=== PATIENT | female | born 1935 | race Caucasian/White ===

== ENCOUNTER 2016-07-27 18:46 | Observation (INO) | payer MEDICARE, OTHER ==
[~2016-07-27] VITALS: Ht 157.5 cm; Wt 60.5 kg
[~2016-07-27 18:46] MED LIST: CHOLESTEROL MED; [UNRECOGNIZED DRUG - REMARK]
[2016-07-27] MEDS ORDERED: ACETAMINOPHEN 500 MG TAB PO STA (19:11)
[2016-07-27] MEDS ORDERED: KETOROLAC 30 MG INJ IV STA (19:23)
[2016-07-27 19:41] LABS: ADD SCAN DIFF NO
[2016-07-27 19:43] LABS: BASOPHILS % 0.2 % (0.0-2.0); HEMATOCRIT 31.2 % (37.0-47.0); HEMOGLOBIN 10.8 g/dl (12.0-16.0); LYMPHOCYTES # 1.7 10^3/ul (0.8-2.9); LYMPHOCYTES % 25.4 % (15.0-51.0); MEAN CORPUSCULAR HEMOGLOBIN 32.8 pg (29.0-33.0); MEAN CORPUSCULAR HGB CONC 34.6 g/dl (32.0-37.0); MEAN CORPUSCULAR VOLUME 94.8 fl (82.0-101.0); MEAN PLATELET VOLUME 10.6 fl (7.4-10.4); MONOCYTES % 15.6 % (0.0-11.0); NEUTROPHIL # 3.9 10^3/ul (1.6-7.5); NEUTROPHILS % 58.5 % (39.0-77.0); PLATELET COUNT 176 10^3/UL (140-415); RED BLOOD COUNT 3.29 10^6/ul (4.20-5.40); RED CELL DISTRIBUTION WIDTH 12.4 % (11.5-14.5); WHITE BLOOD COUNT 6.7 10^3/ul (4.8-10.8)
[2016-07-27 20:00] LABS: ALBUMIN 3.7 g/dl (3.3-4.9); POTASSIUM 3.3 mmol/L (3.5-5.1)
[2016-07-27 20:02] LABS: CREATININE 0.68 mg/dl (0.44-1.00)
[2016-07-27 20:03] LABS: ALBUMIN/GLOBULIN RATIO 0.9; BILIRUBIN,INDIRECT 0.8 mg/dl (0-1.1); BILIRUBIN,TOTAL 0.8 mg/dl (0.2-1.3); CALCIUM 8.6 mg/dl (8.4-10.2); TOTAL PROTEIN 7.8 g/dl (6.1-8.1)
[2016-07-27 20:06] LABS: C-REACTIVE PROTEIN 8.7 mg/dl (0.0-0.9)
--- NOTE | 2016-07-27 20:57 | ERD ---
ER Documentation Chief Complaint Date/Time DATE: 07/27/16 TIME: 20:54 Chief Complaint pain right ankle since yesterday, left knee pain x 1 day (KOSTA BARR PA-C) HPI Patient is an 81-year-old female with a past medical history of osteoarthritis here with granddaughter as rn child who presents to the ED with sudden onset of right ankle pain that started yesterday and left knee pain that started this morning. Denies any new onset trauma or triggering factor. She states that they went to [place] recently but there is no trauma or increase in activity. States that the pain has gotten worse and she is unable to bear weight or walk. She has very minimal range of motion in her ankle. She denies numbness or tingling. She denies pain in her calves. She denies leg swelling. Denies headache or dizziness. States that she had a fever today. Has not taken any medication for symptoms. Her left knee pain started this morning. She states that she has applied a lot of pressure to the left knee due to the pain in the right ankle. Denies any redness or swelling in her left knee. She is able to bend her knee. (KOSTA BARR PA-C) ROS All systems reviewed and are negative except as per history of present illness. (KOSTA BARR PA-C) Medications Home Meds Reported Medications [Osteoporesis Med] No Conflict Check, DAILY 09/10/11 [Cholesterol Med] No Conflict Check, DAILY 09/10/11 Allergies Allergies: Coded Allergies: No Known Drug Allergies (Verified Allergy, Unknown, 07/27/16) PMhx/Soc History of Surgery: No Anesthesia Reaction: No Hx Neurological Disorder: No Hx Respiratory Disorders: No Hx Cardiac Disorders: No Hx Psychiatric Problems: No Hx Miscellaneous Medical Probl: Yes (ANXIETY, NO MEDS TAKEN, osteoporosis, high cholesterol) Hx Alcohol Use: No Hx Substance Use: No Hx Tobacco Use: No (KOSTA BARR PA-C) FmHx Family History: No coronary disease, No diabetes, No other (KOSTA BARR PA-C) Physical Exam Vitals Vital Signs Date Time Temp Pulse Resp B/P Pulse Ox O2 Delivery O2 Flow Rate FiO2 07/27/16 21:45 98.2 65 16 118/62 96 07/27/16 18:48 101.0 90 20 122/59 96 (SISI MACARIO A. ) Physical Exam GENERAL: Well-developed, well-nourished female. Appears in no acute distress. HEAD: Normocephalic, atraumatic. EYES: Pupils are equally reactive bilaterally. EOMs grossly intact. No conjunctival erythema. ENT: Moist mucous membranes. No uvula deviation. No kissing tonsils. No exudates. NECK: Supple. No lymphadenopathy or thyromegaly. No meningismus. negative kernig. negative brudinski. LUNG: Clear to auscultation bilaterally. No rhonchi, wheezing, rales or coarse breath sounds. HEART: Regular rate and rhythm. No murmurs, rubs or gallops. Extremities: Equal pulses bilaterally. No peripheral clubbing, cyanosis. No unilateral leg swelling. Tenderness to the right ankle with mild swelling and mild erythema. Very minimal range of motion. Pulses intact. Negative Homans sign. NEUROLOGIC: Alert and oriented. . Normal speech. unSteady gait. SKIN: Normal color. Warm and dry. No rashes or lesions. Capillary refill < 2 seconds (KOSTA BARR PA-C) Result Diagram: 07/27/16193407/27/161934 Results 24 hrs Laboratory Tests Test 07/27/16 19:35 White Blood Count 6.710^3/ul Red Blood Count 3.2910^6/ul Hemoglobin 10.8g/dl Hematocrit 31.2% Mean Corpuscular Volume 94.8fl Mean Corpuscular Hemoglobin 32.8pg Mean Corpuscular Hemoglobin Concent 34.6g/dl Red Cell Distribution Width 12.4% Platelet Count 17956^3/UL Mean Platelet Volume 10.6fl Neutrophils % 58.5% Lymphocytes % 25.4% Monocytes % 15.6% Eosinophils % 0.0% Basophils % 0.2% Nucleated Red Blood Cells % 0.0/100WBC Neutrophils # 3.910^3/ul Lymphocytes # 1.710^3/ul Monocytes # 1.010^3/ul Eosinophils # 0.010^3/ul Basophils # 0.010^3/ul Nucleated Red Blood Cells # 0.010^3/ul Erythrocyte Sedimentation Rate 79mm/Hr Sodium Level 137mmol/L Potassium Level 3.3mmol/L Chloride Level 99mmol/L Carbon Dioxide Level 26mmol/L Anion Gap 15 Blood Urea Nitrogen 14mg/dl Creatinine 0.68mg/dl Glucose Level 134mg/dl Calcium Level 8.6mg/dl Total Bilirubin 0.8mg/dl Direct Bilirubin 0.00mg/dl Indirect Bilirubin 0.8mg/dl Aspartate Amino Transf (AST/SGOT) 27IU/L Alanine Aminotransferase (ALT/SGPT) 34IU/L Alkaline Phosphatase 118IU/L C-Reactive Protein 8.7mg/dl Total Protein 7.8g/dl Albumin 3.7g/dl Globulin 4.10g/dl Albumin/Globulin Ratio 0.90 Current Medications Medications (Trade) Dose Ordered Sig/Gisel Route PRN Reason Start Time Stop Time Status Last Admin Dose Admin Acetaminophen (Tylenol Tab) 1,000 mg ONCE STAT PO 07/27/16 19:11 07/27/16 19:24 DC 07/27/16 19:21 Ketorolac Tromethamine (Toradol) 30 mg ONCE STAT IV 07/27/16 19:23 07/27/16 19:24 DC 07/27/16 19:27 Lidocaine (Xylocaine 1% (Mdv) 20 ml) 20 ml ONCE ONCE SC 07/27/16 22:00 07/27/16 22:01 DC (SISI MACARIO DO) Procedures/MDM ER COURSE: I kept the patient and/or family informed of laboratory and diagnostic imaging results throughout the emergency room course. IMAGING STUDIES [place] [id number] Radiology Main Line: [phone] DIAGNOSTIC IMAGING REPORT Patient: SANTO SHERIDAN : 1935 Age: 81 Sex: F MR #: [id number] DOS: 07/27/161910 Ordering MD: KOSTA BARR PA-C Location: [facility] Room/Bed: PROCEDURE: XR Right Ankle. CLINICAL INDICATION: Right ankle pain. TECHNIQUE: 3 views. Frontal, lateral, and oblique. COMPARISON: None. FINDINGS: There is no fracture or dislocation. There is diffuse soft tissue swelling. Articular surfaces are intact. There is no lytic or blastic lesion. There is no radiopaque foreign body. IMPRESSION: 1. Diffuse soft tissue swelling. 2. Otherwise normal images of the right ankle. RPTAT: QQ .Dallin Sanabria MD, MD Date Time Electronically viewed and signed by .Dallin Sanabria MD, MD on 07/27/2016 21:07 .R/ CC: KOSTA BARR PA-C [place] [id number] Radiology Main Line: [phone] DIAGNOSTIC IMAGING REPORT Patient: SANTO SHERIDAN : 1935 Age: 81 Sex: F MR #: [id number] DOS: 07/27/16 1911 Ordering MD: KOSTA BARR PA-C Location: [facility] Room/Bed: PROCEDURE: Left knee radiographs. CLINICAL INDICATION: Left knee pain. TECHNIQUE: Three views. Weight bearing. Frontal, lateral, and oblique. COMPARISON: No prior studies are available for comparison. FINDINGS: There is no fracture or dislocation. There is a large joint effusion. There are degenerative changes with osteophytes arising from all 3 joint compartment margins. There is medial joint compartment narrowing, subarticular sclerosis, and deformity. There is no lytic or blastic lesion. There is no radiopaque foreign body. IMPRESSION: 1. Large joint effusion. 2. Severe degenerative change. 3. No acute abnormality. RPTAT: QQ .Dallin Sanabria MD, Date Time Electronically viewed and signed by .Dallin Sanabria MD, MD on 07/27/2016 21:08 .R/ CC: KOSTA BARR PA-C LABORATORY STUDIES Patient CBC does not show signs of infection or anemia. ESR is elevated to 79 CRP is elevated to 8.7. MEDICAL DECISION MAKING: This is a 81-year-old female who presents with right ankle pain 1 day vital signs were reviewed. Patient is afebrile. Patient is not hypoxic. I consulted with Dr. Macario regarding this patient who reviewed her imaging studies and laboratory studies. Ankle arthrocentesis was ordered. Very minimal fluid was removed from the right ankle. Patient will be admitted. Patient is stable at transfer to the ED 1 for admission. Her x-rays of by radiologist unremarkable for fracture or dislocation. Low suspicion for osteomyelitis. Patient likely has septic joint however further evaluation needs to be done. (KOSTA BARR PA-C) Arthrocentesis by me: Patient consented, sterilely draped, full prep, time out performed. Anesthesia: 1% lidocaine locally Location: Right ankle Technique: 20 gauge needle aspiration Results: 0.5 ml of serous fluid Complications: Minimal bleeding. No complications. (ISSI MACARIO DO) KOSTA BARR PA-C July 27, 2016 20:57 SISI MACARIO DO July 27, 2016 22:49
--- NOTE | 2016-07-27 21:08 | RADRPT ---
PROCEDURE: XR Right Ankle. CLINICAL INDICATION: Right ankle pain. TECHNIQUE: 3 views. Frontal, lateral, and oblique. COMPARISON: None. FINDINGS: There is no fracture or dislocation. There is diffuse soft tissue swelling. Articular surfaces are intact. There is no lytic or blastic lesion. There is no radiopaque foreign body. IMPRESSION: 1. Diffuse soft tissue swelling. 2. Otherwise normal images of the right ankle. RPTAT: QQ .Dallin Sanabria MD, MD Date Time Electronically viewed and signed by .Dallin Sanabria MD, MD on 07/27/2016 21:07 .R/
--- NOTE | 2016-07-27 21:08 | RADRPT ---
PROCEDURE: Left knee radiographs. CLINICAL INDICATION: Left knee pain. TECHNIQUE: Three views. Weight bearing. Frontal, lateral, and oblique. COMPARISON: No prior studies are available for comparison. FINDINGS: There is no fracture or dislocation. There is a large joint effusion. There are degenerative changes with osteophytes arising from all 3 joint compartment margins. There is medial joint compartment narrowing, subarticular sclerosis, and deformity. There is no lytic or blastic lesion. There is no radiopaque foreign body. IMPRESSION: 1. Large joint effusion. 2. Severe degenerative change. 3. No acute abnormality. RPTAT: QQ .Dallin Sanabria MD, MD Date Time Electronically viewed and signed by .Dallin Sanabria MD, MD on 07/27/2016 21:08 .R/
[2016-07-27 21:45] VITALS: TEMP 98.2
[2016-07-27] MEDS ORDERED: LIDOCAINE 1% (MDV) 20 ML INJ SC ONE (22:00)
[2016-07-27] MEDS ORDERED: SOD CHLORIDE 0.9% 1,000 ML IV SCH (23:39)
[2016-07-28] MEDS ORDERED: PIPER-TAZO 3.375 GM IV (PMX) 100 ML IVPB ONE
[2016-07-28 00:45] VITALS: BP 137/61; PULSE 86; RESP 18; Ht 157.5 cm; Wt 60.5 kg
[2016-07-28] MEDS ORDERED: morphine 2 MG INJ IV PRN (02:00)
[2016-07-28] MEDS ORDERED: DOCUSATE SODIUM 100 MG CAP PO PRN (02:30)
[2016-07-28] MEDS ORDERED: ACETAMINOPHEN 325 MG TAB PO PRN ×2 (02:30)
[2016-07-28] MEDS ORDERED: ONDANSETRON 4 MG INJ IV PRN ×2 (02:30)
[2016-07-28] MEDS ORDERED: VANCOMYCIN IV PER PHARMACY XX SCH (02:30)
[2016-07-28] MEDS ORDERED: NACL 0.9% 3 ML SYG IV SCH (02:30)
[2016-07-28] MEDS ORDERED: BISACODYL (EC) 5 MG TAB PO PRN (02:30)
[2016-07-28] MEDS ORDERED: POTASSIUM CHLORIDE (SR) 20 MEQ TAB PO STA (02:31)
--- NOTE | 2016-07-28 02:34 | HP ---
Date/Time of Note Date/Time of Note DATE: 07/28/16 TIME: 02:08 Assessment/Plan VTE Prophylaxis VTE Prophylaxis Intervention: LMWH Lines/Catheters Central line still needed: No Urinary Cath still in place: No Assessment/Plan Chief Complaint/Hosp Course This is a 81-year-old female getting admitted to the [facility] floor for: #1 polyarticular joint pain: Patient has right-sided erythema and warmth and swelling noted at the ankle, patient also has a left-sided knee pain and warmth noted and effusion on xray. ED workup for septic arthritis done with fluid tap of the right ankle. Patient had a fever of 101. Patient given vancomycin and Zosyn at the ED. At the current time patient's white blood cell count within normal values ESR is elevated at 87. Uric acid level ordered the patient denies history of gout. We will continue workup for infectious versus autoimmune/inflammatory etiology. Will continue [facility] pharmacy to dose. Will await joint synovial fluid analysis. Will provide pain control with morphine. RA and CCP labs ordered. Consider consulting orthopedics. #2 Cellulitis : There is erythema at the right ankle area this could be cellulitis as there was soft tissue swelling noted on the x-ray. Patient is already on vancomycin we will continue to follow. #3 hyperlipidemia: We will continue statin #4 hypokalemia: We will replete with p.o. potassium, follow in the a.m. #5osteoporosis: Continue to provide pain control. #6 DVT GI prophylaxis: Lovenox, Protonix Problems: HPI/ROS Admit Date/Time Admit Date/Time July 27, 2016 at 23:40 Hx of Present Illness chief complain: right ankle pain. Patient is an 81-year-old female with a past medical history of osteoarthritis here with granddaughter as insurance account assistant who presents to the ED with sudden onset of right ankle pain that started yesterday and left knee pain that started this morning. Denies any new onset trauma or triggering factor. She states that they went to [place] recently but there is no trauma or increase in activity. States that the pain has gotten worse and she is unable to bear weight or walk. She has very minimal range of motion in her ankle. She denies numbness or tingling. She denies pain in her calves. She denies leg swelling. Denies headache or dizziness. States that she had a fever today. Has not taken any medication for symptoms. Her left knee pain started this morning. She states that she has applied a lot of pressure to the left knee due to the pain in the right ankle. Denies any redness or swelling in her left knee. She is able to bend her knee. allergies: nkda meds: see MAR ROS Const: Negative for fever, chills, weight gain or weight loss, fatigue, or diaphoresis Eyes : No pain discharge or redness or change in visual acuity ENT: No pain, sore throat, congestion, congestion, dysphagia or discharge Respiratory: No shortness of breath, cough, sputum, wheezing, or pleuritic pain Cardiovascular: No chest pain, palpitation, PND, or edema GI : no change in appetite, abdominal pain, nausea, vomiting, diarrhea, constipation, or change in the color his stool Genitourinary: No dysuria, hematuria, flank pain , discharge or CVA tenderness Musculoskeletal: Left knee pain, right ankle pain. Skin: No rash, bruising or hives Neuro: No headache, dizziness, syncope, seizure, focal weakness Endocrine: No polyuria, polydipsia, temperature intolerance Psych: No hallucination, depression, anxiety or suicidal ideation PMH/Family/Social Past Medical History Osteoporosis, hyperlipidemia Past Surgical History Past Surgical Hx: no surgical history Family History Significant Family History: no pertinent family hx Social History Alcohol Use: none Smoking Status: Never smoker Drug Use: none Exam/Review of Systems Vital Signs Vitals Vital Signs Date Time Temp Pulse Resp B/P Pulse Ox O2 Delivery O2 Flow Rate FiO2 07/27/16 23:44 89 16 138/59 99 Room Air 07/27/16 21:45 98.2 Exam Exam General: This is a pleasant 81-year-old female in mild distress.. The patient is alert oriented -3 HEENT: Atraumatic, normocephalic. The pupils are equal, round and reactive. Extraocular motor are intact Neck: Supple with full range of motion. No rigidity or meningismus Chest: Nontender Lungs: Clear to auscultation bilaterally no crackles rales or wheezing Heart: Normal S1-S2, Regular rhythm and rate. No murmur, S3, or S4 Abdomen: Soft , nontender, nondistended , bowel sounds are present. No guarding no rebound tenderness , No masses or organomegaly. No costovertebral temporal angle mass Extremities: Right ankle swelling and warmth, mild erythema noted. Band-Aids in place status post diagnostic tap in the ED. Left knee pain, warmth, no erythema no swelling. Neurologic: Normal mental status, speech normal, cranial nerves II through XII are intact, motor and sensory are intact, no focal weakness Additional Comments xray of left knee FINDINGS: There is no fracture or dislocation. There is a large joint effusion. There are degenerative changes with osteophytes arising from all 3 joint compartment margins. There is medial joint compartment narrowing, subarticular sclerosis, and deformity. There is no lytic or blastic lesion. There is no radiopaque foreign body. IMPRESSION: 1. Large joint effusion. 2. Severe degenerative change. 3. No acute abnormality. X-ray right ankle FINDINGS: There is no fracture or dislocation. There is diffuse soft tissue swelling. Articular surfaces are intact. There is no lytic or blastic lesion. There is no radiopaque foreign body. IMPRESSION: 1. Diffuse soft tissue swelling. 2. Otherwise normal images of the right ankle. Labs Result Diagram: 07/27/16193407/27/16 193 Medications Medications Current Medications Morphine Sulfate (morphine) 1 mg Q4H PRN IV pain management; Start 07/28/16 at 02:00 Morphine Sulfate (morphine) 2 mg Q4H PRN IV pain management; Start 07/28/16 at 02:00 OSMIN BA July 28, 2016 02:31
[2016-07-28] MEDS: PANTOPRAZOLE (EC) 40 MG TAB PO SCH (05:41)
[2016-07-28] MEDS: morphine 2 MG INJ IV PRN ×2 (06:09→14:00)
[2016-07-28 08:02] VITALS: BP 93/50; RESP 18
[2016-07-28] MEDS: ENOXAPARIN 40 MG/0.4 ML SYG SC SCH (08:14)
[2016-07-28] MEDS ORDERED: VANCOMYCIN 1 GM (PMX) 250 ML IVPB SCH ×2 (09:00)
[2016-07-28 20:09] VITALS: BP 123/58; RESP 17
[2016-07-28] MEDS ORDERED: AL HYDROX/MG HYDROX/SIMETH 30 ML CUP PO PRN (21:30)
[2016-07-28] MEDS ORDERED: VANCOMYCIN 1 GM in NS 250 ML IVPB SCH (23:00)
[2016-07-29 06:30] LABS: ADD SCAN DIFF NO
[2016-07-29 06:33] LABS: BASOPHILS % 0.4 % (0.0-2.0); EOSINOPHILS % 0.2 % (0.0-7.0); HEMATOCRIT 29.4 % (37.0-47.0); HEMOGLOBIN 9.6 g/dl (12.0-16.0); LYMPHOCYTES # 1.4 10^3/ul (0.8-2.9); MEAN CORPUSCULAR HEMOGLOBIN 31.1 pg (29.0-33.0); MEAN CORPUSCULAR HGB CONC 32.7 g/dl (32.0-37.0); MEAN CORPUSCULAR VOLUME 95.1 fl (82.0-101.0); MEAN PLATELET VOLUME 10.9 fl (7.4-10.4); MONOCYTE # 0.9 10^3/ul (0.3-0.9); MONOCYTES % 16.2 % (0.0-11.0); NEUTROPHIL # 3.3 10^3/ul (1.6-7.5); NEUTROPHILS % 57.8 % (39.0-77.0); PLATELET COUNT 169 10^3/UL (140-415); RED BLOOD COUNT 3.09 10^6/ul (4.20-5.40); RED CELL DISTRIBUTION WIDTH 12.4 % (11.5-14.5); WHITE BLOOD COUNT 5.7 10^3/ul (4.8-10.8)
[2016-07-29] MEDS: PANTOPRAZOLE (EC) 40 MG TAB PO SCH (06:33)
[2016-07-29 07:19] VITALS: BP 119/59; RESP 18
[2016-07-29 07:23] LABS: ALBUMIN 3.3 g/dl (3.3-4.9); ALBUMIN/GLOBULIN RATIO 0.91; BILIRUBIN,INDIRECT 0.7 mg/dl (0-1.1); BILIRUBIN,TOTAL 0.7 mg/dl (0.2-1.3); CALCIUM 8.5 mg/dl (8.4-10.2); CHOL/HDL RATIO 5.1 RATIO; CREATININE 0.59 mg/dl (0.44-1.00); POTASSIUM 3.4 mmol/L (3.5-5.1); TOTAL PROTEIN 6.9 g/dl (6.1-8.1)
[2016-07-29 07:31] LABS: THYROID STIMULATING HORMONE 2.82 MIU/L (0.465-4.680)
[2016-07-29] MEDS: ENOXAPARIN 40 MG/0.4 ML SYG SC SCH (09:42)
[2016-07-29 12:38] LABS: ANA SCREEN NEGATIVE (NEGATIVE)
--- NOTE | 2016-07-29 13:54 | CONS ---
DATE OF ADMISSION: 07/27/2016 DATE OF CONSULTATION: 07/29/2016 TYPE OF CONSULT: Infectious disease. REASON FOR CONSULTATION: Antibiotic management. HISTORY OF PRESENT ILLNESS: Najma Jordan is an 81-year-old female with numer ous problems and history of osteoarthritis who comes in now with right ankle pain and is being seen for antibiotic management. Her past problems include: 1. Significant osteoarthritis. 2. Hyperlipidemia. 3. Polyarticular joint pain. The patient has right-sided erythema and warmth and swelling noted at the ankle. The patient also h as left-sided knee pain and warmth noted and effusion on x-ray. The ED workup for septic arthritis done with fluid tap on the right ankle. She had a temperature of 101, was started on vancomycin and Zosyn. At the current time, her white blood cell count is within normal limits. Sed rate is eleva kinjal at 87. Uric acid level is ordered, but the patient denies gout. Will await joint synovial flui d analysis. The patient has cellulitis with erythema of the right ankle. HOSPITAL COURSE: On admission, her white count was 6.7, it is now 5.7, H and H of 9.6 and 29.4, sarah telet count 169,000. BUN and creatinine are 10/0.59. We are waiting for other factors, her rheumat oid factor is negative. HOMERO is negative. Other body sources are pending. Microbiology is pending. The patient was started on vancomycin and no other antibiotic. IMAGING STUDY of the knee showed large joint effusion, severe degenerative change, no acute abnormal ity of the ankle, diffuse soft tissue swelling, otherwise normal images. PAST MEDICAL HISTORY: Operations as outlined. FAMILY HISTORY: Noncontributory. SOCIAL HISTORY: She does not smoke, drink or abuse drugs. ALLERGIES: NONE TO PENICILLIN, SULFA OR FOODS. MEDICATIONS: Per chart. REVIEW OF SYSTEMS: Noncontributory. PAST SURGICAL HISTORY: She complains of a lot of pressure to the left knee due to pain in the right ankle. Denies any redness or swelling of the left knee. PHYSICAL EXAMINATION: GENERAL: The patient is an elderly appearing female who is alert, responsive, in no acute distress. VITAL SIGNS: Stable. She is afebrile. SKIN: Without generalized rash. HEENT: Within normal limits. NECK: Supple. LYMPH NODES: None palpable. CHEST: Decreased breath sounds at the bases. HEART: Without murmur or gallop. ABDOMEN: Soft, nontender, nondistended, without organosplenomegaly or masses. EXTREMITIES: Without cyanosis, clubbing, or edema. She had that right ankle swelling and warmth, m ild erythema noted. The left knee is warm and painful, no erythema or swelling. RECTAL AND GENITAL: Deferred. NEUROLOGIC: No focal neurological abnormalities. EXTREMITIES: As noted, an x-ray of the left knee was done. There is no fracture or dislocation. T here is a large joint effusion which should probably be aspirated. X-ray of the right ankle shows n o obvious fractures and has diffuse soft tissue swelling, otherwise normal images of the right ankle . We will continue her on vancomycin for now, await the results of the aspiration and continue her on current therapy. I will dictate my findings to the hospitalist. Dictated By: ARYAN SMITH MD, JD/ROSAMARIA Conf#: [id number] DID#: [id number]
--- NOTE | 2016-07-29 16:47 | PDOCDIS ---
Discharge Instructions CONDITION Patient Condition: Good HOME CARE INSTRUCTIONS: Diet Instructions: Regular ACTIVITY: Activity Restrictions: No Restrictions FOLLOW UP/APPOINTMENTS Appointments F/U WITH YOUR PCP IN 1-2 WEEKS YG ANTON July 29, 2016 16:46
--- NOTE | 2016-07-29 17:12 | DS ---
DATE OF ADMISSION: 07/27/2016 DATE OF DISCHARGE: 07/29/2016 FINAL DIAGNOSES: 1. Cellulitis versus septic arthritis, now resolved. Culture from fluid is negative. 2. Osteoarthritis. She should continue to follow up with her insulation extruder operator. 3. Dyslipidemia. Continue home statin. 4. Osteoporosis. Continue home medications. HOSPITAL COURSE: The patient is an 81-year-old female with a history of osteoarthritis. She does f ollow up with a insulation extruder operator. The patient also has a history of dyslipidemia and osteoporosis. S he presents with sudden onset right ankle pain that started the day prior to admission. She does al so report chronic pain in both of her knees. The patient did have a joint aspiration in the ED. Gr am-stain culture was negative. The patient did have a low-grade fever that did resolve. The patien t's erythema and joint pain did also resolve. She had no white count, no left shift or bandemia. T he patient was also worked up for autoimmune issues. Her rheumatoid factor was negative. Her HOMERO w as also negative. The patient felt that she was ready to be discharged. She was ambulating well an d said that her pain had gone away. Her erythema and swelling in the right foot had also resolved. On the day of discharge, patient's vitals, labs, physical exam were stable. She had no acute compl aints and questions were answered. CONDITION ON DISCHARGE: Stable. DISPOSITION: To home. MEDICATIONS: The patient should continue usual home medications. No new medications prescribed. FOLLOWUP: The patient is to follow up with her PCP in 1 to 2 weeks and with her insulation extruder operator. Greater than 30 minutes was spent coordinating the discharge of patient. Dictated By: YG ANTON MD BS/NTS Conf#: [id number] DID#: [id number]
[2016-07-29 19:59] VITALS: BP 132/84; PULSE 88; RESP 20
[2016-07-29 21:09] LABS: CYCLIC CITRULLINATED PEP IGG <16 UNITS
== END 2016-07-29 19:53 | disposition home or self-care (01) ==
LOC: FTE 18:46 → UNDOADMOB 23:40 → PP2 23:40 → MS1 23:40 → UNDODISOB 07-29 19:53
PROVIDERS: ADMIT Family Medicine; ATTEND Family Medicine
DX: L03.115 Cellulitis of right lower limb (principal); E78.5 Hyperlipidemia, unspecified; E87.6 Hypokalemia; M81.0 Age-related osteoporosis without current pathological fracture; M19.071 Primary osteoarthritis, right ankle and foot; M25.462 Effusion, left knee
CPT/HCPCS: 73562; 73610; 80053; 80061; 84443; 84560; 85025; 85651; 86038; 86140; 86200; 86430; 87070; 89060; 96365; 96366; 96372; 96374; 96375; 96376; 99285; G0378; J1650; J1885; J2270; J2543; J3370; J7030

== ENCOUNTER 2017-06-03 14:52 | Inpatient (IN) | END 2017-06-06 17:55 | disposition home or self-care (01) | DRG 406 ==